=== PATIENT | female | born 1995 | race Caucasian/White ===

== ENCOUNTER 2016-05-26 01:21 | Observation (INO) ==
[2016-05-26 02:15] LABS: Bilirubin,Urine Negative (Negative); Blood,Urine Negative (Negative); Color,Urine Yellow (Yellow); Glucose,Urine (UA) Normal (Normal); Ketones,Urine 15 mg/dL (Negative); Leukocyte Esterase,Urine Small (Negative); Nitrite,Urine Negative (Negative); Protein,Urine Negative (Neg-Trace); Specific Gravity,Urine 1.022 (1.010-1.025); Urobilinogen,Urine Normal (Normal)
--- NOTE | 2016-05-26 02:17 | Discharge Summary ---
Date of Encounter: 05/26/16 Time of Encounter: 02:17 - Discharge Diagnosis (1) Vaginal discharge Priority: Primary Status: Acute Comments: Patient states she had intercourse within the past 48 hours. She c/o vaginal bleeding (small amount of old blood today) and soaking her pants this evening with an odorless clear fluid. She denies cramping, contractions, and vaginal pressure. She states baby is active, but not as active as normal today. Reactive fetus on NST. Category I tracing with 15x15 accels with baseline of 125 and no decels. Uterine irritability noted on TOCO, non-palpable. Spec exam: no significant finding, cervix visually closed Nitrazine negative. - Discharge Medications Home Medications: Cephalexin [Keflex] 500 mg PO BID 10 Days 02/14/16 [Rx] Ondansetron HCl [Zofran] 4 mg PO Q8HR PRN #12 tablet 02/14/16 [Rx] Allergies/Adverse Reactions: Allergies No Known Allergies Allergy (Verified 02/13/16 23:16) Date of admission: 05/26/16 01:21 Discharging clinician: Jesusita Mendoza - Patient Status Disposition: Home, Self-Care Condition: Good Functional capacity at discharge: independent ambulation Overall status at discharge: patient is back to baseline - Discharge Instructions Follow Up With: Keiko Dimas CNM [Non-Partnered Physician] - - Diet and Activity Activity: resume usual activities as tolerated Diet: regular diet 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 Reason for admission: other Time Attestation: Total time spent providing and/or coordinating discharge services: Time Spent: Less than 30 minutes Exam - Constitutional Vitals: Temp Pulse Resp BP 97.8 F 83 16 129/72 05/26/16 01:39 05/26/16 01:39 05/26/16 01:39 05/26/16 01:39 General appearance IM: cooperative, A&O X 3, pleasant, no acute distress, answers questions appropriately - Respiratory Respiratory exam: Present: CTAB - Cardiovascular Cardiovascular exam IM: Present: RRR, +S1, +S2 - GI/Abdominal GI/Abdominal exam IM: normal bowel sounds, soft - Additional comments: Gravid uterus nontender - Extremities Exam Extremities exam IM: Present: full ROM, normal capillary refill, normal inspection, radial pulses palpable and symetrical - Neurological Exam Neurological exam: oriented X3, reflexes normal, no focal deficits - VTE Reasons for not Prescribing Prophylaxis: Treatment not Indicated - Low risk for VTE
[2016-05-26 02:18] LABS: Clarity,Urine Hazy (Clear); Hyaline Casts,Urine None Seen per lpf (None-Few); RBC,Urine 0-3 per hpf (0-3); Squamous Epithelial Cell,Urine Many per lpf (None-Few)
[2016-05-26 02:38] LABS: Bacteria,Urine Few per hpf (None-Few)
[2016-05-28 10:27] VITALS: BP 129/72
== END 2016-05-26 02:24 | disposition home or self-care (01) ==
LOC: 1NENULAB
PROVIDERS: ADMIT Obstetrics & Gynecology; ATTEND Obstetrics & Gynecology

== ENCOUNTER 2016-06-24 08:15 | Inpatient (IN) ==
[2016-06-24 06:20] LABS: Bilirubin,Urine Negative (Negative); Blood,Urine Negative (Negative); Clarity,Urine Turbid (Clear); Color,Urine Yellow (Yellow); Glucose,Urine (UA) Normal (Normal); Ketones,Urine Negative (Negative); Leukocyte Esterase,Urine Negative (Negative); Nitrite,Urine Negative (Negative); Protein,Urine 100 mg/dL (Neg-Trace); Specific Gravity,Urine 1.019 (1.010-1.025); Urobilinogen,Urine Normal (Normal)
[2016-06-24 06:22] LABS: Squamous Epithelial Cell,Urine Many per lpf (None-Few)
[2016-06-24 06:29] LABS: Bacteria,Urine Many per hpf (None-Few); Mucus,Urine Many (Few)
[2016-06-24 06:30] LABS: RBC,Urine 0-3 per hpf (0-3); Transitional Epi Cells,Urine Few per hpf (None-Few)
[2016-06-24] MEDS ORDERED: Famotidine 20 MG/2 ML VIAL IVP PRN (08:23)
[2016-06-24] MEDS ORDERED: Naloxone 0.4 MG/ML INJ IVP PRN (08:23)
[2016-06-24] MEDS ORDERED: Ondansetron 4 MG/2 ML VIAL IVP PRN (08:23)
[2016-06-24] MEDS ORDERED: Metoclopramide 10 MG/2 ML VIAL IVP PRN (08:23)
[2016-06-24 08:43] LABS: Basophils # 0.1 K/mcL (0.0-0.2); Basophils % 0.4 %; Eosinophils # 0.1 K/mcL (0.0-0.6); Eosinophils % 0.7 %; Hematocrit 39.8 % (35.3-44.9); Hemoglobin 13.7 g/dL (11.5-15.4); Immature Granulocytes % 1.2 % (0-4); Lymphocytes # 4.4 K/mcL (0.6-4.6); Mean Corpuscular HGB Conc 34.4 g/dL (31.6-35.5); Mean Corpuscular Hemoglobin 30.8 pg (28.0-33.3); Mean Corpuscular Volume 89.4 fL (83.0-100.0); Mean Platelet Volume 11.9 fL (9.4-12.4); Monocytes # 1.1 K/mcL (0.0-1.3); Monocytes % 9.4 %; Neutrophils # 6.3 K/mcL (1.6-8.9); Platelet Count 194 K/mcL (140-400); Red Blood Count 4.45 M/mcL (3.82-4.97); Red Cell Distribution Width 12.2 % (11.5-14.5); Segmented Neutrophils % 52.3 %
[2016-06-24] MEDS ORDERED: Oxytocin 20 units/ LR 1000 mL 20 UNIT/1,000 ML BAG IVC ONE (08:57)
[2016-06-24] MEDS ORDERED: Oxytocin 20 units/ LR 1000 mL 20 UNIT/1,000 ML BAG IVC SCH (09:00)
[2016-06-24] MEDS: Ringers Solution, Lactated 1,000 ML IVC SCH ×2 (09:20→17:57)
--- NOTE | 2016-06-24 09:37 | OB/GYN History & Physical ---
Date of Encounter: 06/24/16 Time of Encounter: 09:34 Assessment and Plan (1) PROM (premature rupture of membranes) Current visit: Yes Status: Acute SROM for clear fluid at 0500 this am. GBS negative. Admit for augmentation of labor. Plan for pitocin augmentation. Frequent repositioning and coaching for pain management as pt states she does not want an epidural. Anticipate . Qualifiers: PROM onset of labor timing: unspecified duration between rupture of membranes and onset of labor PROM gestational age: full term Qualified Code( s): O42.92 - Full-term premature rupture of membranes, unspecified as to length of time between rupture and onset of labor (2) 37 weeks gestation of Current visit: Yes Status: Acute History of Present Illness Chief complaint: SROM HPI: Ms. Tee is a 21 year old female presenting at 37w6d with c/o leaking fluid. Pt states she woke with wet clothing at 0500 this am and has continued to leak since. She denies contractions or VB. Good FM. No other complaints. This has been uncomplicated and pt transferred to [facility] from [facility] at 28 weeks gestation. Blood type O positive. Rubella immune. Serologies and GBS negative. Past Med Surg Social Fam HX - Past Medical History Medical history: no medical history Psychiatric history: no psych history - Social History Smoking Status: Never smoker Smokeless Tobacco Status: No Alcohol use: none Drug use: none - Family History Mother Living Status: Still Living Hx Family Cardiac Disorders: No Hx Family Respiratory Disorders: No Hx Family Cancer: No Hx Family GI Disorders: No Hx Family Endocrine Disorder: No Hx Family Neuromuscular Disorders: No Hx Family Neurologic Disorders: No Hx Family HEENT Disorders: No Hx Family Autoimmune Disorders: No Obstetrical History - Pregnancies : 2 Para: 0 Ab's: 1 Medications and Allergies Tablet 1 tab PO DAILY 05/26/16 [History] Acetaminophen [Tylenol] 1 tab PO PRN PRN 06/24/16 [History] Allergies No Known Allergies Allergy (Verified 06/24/16 05:56) Review of System OB All systems PM: reviewed and no additional remarkable complaints except as stated Exam - Constitutional Constitutional: well developed, well nourished, no acute distress - HEENT HEENT: Mucus Membranes Moist - Lungs Respiratory exam: CTAB - Cardiovascular Cardiovascular exam: RRR, +S1, +S2 - Abdomen Abdomen: Present: gravid, non tender - Extremities Extremities exam: normal inspection - Vulva Vulva: bilateral: normal - Vagina Vagina: Present: normal moisture - Cervix Dilation: 1 Effacement: 80 - Anus/Rectum Anus/Rectum: Present: normal perianal skin Results Result Diagrams: 06/24/16 08:30 Abnormal lab results WBC 12.1 K/mcL (4.3-11.1) H 06/24/16 08:30 Immature Plt Fraction 14.0 % (1.1-6.1) H 06/24/16 08:30 Urine Clarity Turbid (Clear) A 06/24/16 06:08 Urine Protein 100 mg/dL (Neg-Trace) H 06/24/16 06:08 Urine Microscopic WBC 5-15 per hpf (0-3) H 06/24/16 06:08 Ur Squamous Epith Cells Many per lpf (None-Few) H 06/24/16 06:08 Urine Bacteria Many per hpf (None-Few) H 06/24/16 06:08 Urine Mucus Many (Few) H 06/24/16 06:08 Ur Culture Indicated? YES (NO) A 06/24/16 06:08 All other labs normal. - VTE Reasons for not Prescribing Prophylaxis: Treatment not Indicated - Low risk for VTE
--- NOTE | 2016-06-24 11:00 | Anesthesia Evaluation PreOp ---
Date of Encounter: 06/24/16 Time of Encounter: 10:58 - Past History Planned Operation: isabel Cardiac History: Denies any Significant Hx Pulmonary History: Denies Any Significant HX EMPLOYMENT CASE MANAGER History: Denies Any Significant HX Other Medical History: GERD Anesthesia History: No Prior Anesthetic Complications, Past Anesthesia (Closed reduction radius fx 2006), Problems (none) : Yes Test: Positive Alcohol Use: none Drug use: none Medications and Allergies Tablet 1 tab PO DAILY 05/26/16 [History] Acetaminophen [Tylenol] 1 tab PO PRN PRN 06/24/16 [History] Allergies No Known Allergies Allergy (Verified 06/24/16 05:56) - Meds/Allergy Pre-op Review Medications Reviewed: Yes Allergies Reviewed: Yes Beta Blockers on Current Med List: No Anesthesia Results - Labs 06/24/16 08:30 Anesthesia Exam Height: 5'3" Weight: 76 NPO (# of Hours): 6 Pain Scale: 2 Pain Scale Used: Numeric (1 - 10) - HEENT Pupil (Motor): Pupils equal Mallampati: II Teeth: Normal Oral Opening: Greater than 3 - EMPLOYMENT CASE MANAGER LOC: Oriented EMPLOYMENT CASE MANAGER Motor: Normal RUE, Normal LUE, Normal RLE, Normal LLE, Normal Face EMPLOYMENT CASE MANAGER Sensory: Normal: RUE, LUE, RLE, LLE, Face - Cardiac Rhythm: Regular Murmur: None - Pulmonary Breath Sounds: bilateral Clear Respiratory Effort: Symmetrical Anesthesia Assess/Plan ASA Score: 2 Modified Dami Scale for Level of Consciousness: Cooperative, oriented, and tranquil Anesthetic Plan: Regional Autologous Blood: No Monitoring Plan: Standard Monitors Recovery Plan: Other (risks discussed, questions answered, consented)
--- NOTE | 2016-06-24 12:00 | OB Labor Progress Note ---
Date of Encounter: 06/24/16 Time of Encounter: 11:58 Labor Progress Note - Subjective Subjective: Pt reports some lower back pain with contractions. - Cervix Cervix: 3/80/-1 - Heart Tones Heart Tones: Category I - [place]: 2-3 minutes - Interventions Interventions: AROM of forebag for small amount additional clear fluid. IUPC and FSE placed. - Plan Plan: Continue monitoring. Allow frequent position changes. Anticipate .
[2016-06-24] MEDS ORDERED: *HR* Nalbuphine 20 MG/ML AMPUL IVP PRN ×2 (13:48→20:25)
[2016-06-24] MEDS ORDERED: *HR* Nalbuphine 20 MG/ML AMPUL ONE ×2 (13:49→20:32)
[2016-06-24] MEDS ORDERED: Lidocaine 1% 20 ML MDV ONE ×2 (15:15→21:57)
[2016-06-24] MEDS ORDERED: 0.9 % Sodium Chloride 1,000 ML ONE (15:44)
--- NOTE | 2016-06-24 15:51 | OB Labor Progress Note ---
Date of Encounter: 06/24/16 Time of Encounter: 15:49 Labor Progress Note - Subjective Subjective: Pt breathing through contractions. Nubain has helped her discomfort somewhat. She is still declining epidural at this time. - Cervix Cervix: 4-5/90/-1 - Heart Tones Heart Tones: Category II. Moderate variability. Variable decelerations present with contractions. Variables have not improved with position changes. Will start amnioinfusion. - [place]: 2-4 minutes - Interventions Interventions: Amnioinfusion ordered. - Plan Plan: Continue to monitor. Dr. Padilla notified of category II tracing and states he will come in.
[2016-06-24] MEDS ORDERED: *HR* Ropivacaine/PF 0.2% 10 ML AMPUL EP ONE (16:10)
[2016-06-24] MEDS ORDERED: *HR* FentaNYL (PF) 100 MCG/2 ML VIAL EP ONE (16:10)
[2016-06-24] MEDS ORDERED: *HR* Ropivacaine/PF 0.2% 10 ML AMPUL ONE ×3 (16:12→20:21)
[2016-06-24] MEDS ORDERED: *HR* FentaNYL (PF) 100 MCG/2 ML VIAL ONE ×3 (16:12→20:21)
[2016-06-24] MEDS ORDERED: Epidural Premix (fent/bupiv) 110 ML EP ONE ×2 (16:13→22:49)
[2016-06-24] MEDS ORDERED: Epidural Premix (fent/bupiv) 110 ML EP SCH (16:15)
--- NOTE | 2016-06-24 16:39 | Anesthesia Procedures ---
Date of Encounter: 06/24/16 Time of Encounter: 16:37 Procedures: Anesthesia - Epidural/Spinal Patient examined: Yes OB Eval: Gestational age: 37.6 OB Eval: : 2 OB Eval: Hx Para: 0 OB Eval: Dilated at (cm): 5 OB Eval: Contractions: Non-stressed pattern Consent Obtained: Yes Supplemental Oxygen: None/Room Air Site Prep: Aseptic Technique, Sterile prep and drape, 0.5% Chlorhexidine/Alcohol Patient position: upright Local Anesthetic: Lidocaine 1% Amount of Local Anesthetic used: 3 Touhy Needle Gauge: 18 Catheter Depth at Skin (cm): 9 Test Dose (1.5% Lido + Epi): Volume given (mls): 3 Test Dose Result: Negative Loading Dose: Fentanyl (mcg): 100 Loading Dose: Other: ropivicaine 0.2% 10cc Loading Dose Administered: Thru Touhy Needle Infusion Med: 0.125% Bupivacaine w/ 2 mcg/ml Fentanyl Infusion Rate (mls/hr): 14 (pcea 5cc q30") Catheter Secured in Place: Tegaderm Interspace Used: L2-L3 Loss of Resistance (CISCO): Yes Blood: No CSF: No Paresthesia: No Procedure: aseptic throughout, tolerated well, VSS, effective Vitals + FHT's: 121/68 84 16 98% fht 110
[2016-06-24] MEDS ORDERED: Bupivacaine-MPF 0.25% 10 ML VIAL ONE (18:11)
--- NOTE | 2016-06-24 18:19 | Anesthesia Progress Note ---
Date of Encounter: 06/24/16 Time of Encounter: 18:17 Anesthesia Note - Note Note: 06/24/16 18:17 bolus epidural w 5 cc marcaine 0.25 and fentanyl 100mcg for break thru
--- NOTE | 2016-06-24 19:30 | Anesthesia Progress Note ---
Date of Encounter: 06/24/16 Time of Encounter: 19:28 Anesthesia Note - Note Note: 06/24/16 19:28 10cc 0.2% Ropivicaine via epidural for pain 8/10 on left side. R/B of redoing the epidural if bolus doesn't work was discussed in detail.
--- NOTE | 2016-06-24 20:58 | Anesthesia Procedures ---
Date of Encounter: 06/24/16 Time of Encounter: 20:54 Procedures: Anesthesia - Epidural/Spinal Patient ID/Chart reviewed: Yes Patient examined: Yes OB Eval: Contractions: Non-stressed pattern Consent Obtained: Yes Site Prep: Aseptic Technique, 0.5% Chlorhexidine/Alcohol Patient position: upright Local Anesthetic: Lidocaine 1% Amount of Local Anesthetic used: 3 Touhy Needle Gauge: 18 Touhy Needle Depth (cm): 9 Catheter Depth at Skin (cm): 15 Test Dose (1.5% Lido + Epi): Volume given (mls): 3 Test Dose Result: Negative Loading Dose: 0.25% Marcaine (mls): 5 Loading Dose: Fentanyl (mcg): 100 Loading Dose: Other: 2ML NSS Loading Dose Administered: Thru Touhy Needle Infusion Med: 0.125% Bupivacaine w/ 2 mcg/ml Fentanyl Infusion Rate (mls/hr): [address]: Tegaderm Interspace Used: L3-L4 Loss of Resistance (CISCO): Yes Blood: No CSF: No Paresthesia: No Procedure: Called to bedside for pain 10/10 since pitocin was restarted. Current epidural cathetar removed and new epidural inserted one interspace below previous epidural, likely L4-5. Good CISCO, no change in FHR.
--- NOTE | 2016-06-25 00:26 | OB/GYN Procedure Note ---
Delivery - Delivery Date: 06/25/16 Provider: Peace Buckner Intrapartum events: none Delivery induction: none Delivery augmentation: pitocin Delivery monitor: internal FHT, internal uterine Anesthesia: epidural Estimated Blood Loss: 350 - (s) Infant A Delivery Date: 06/24/16 Delivery Time: 23:39 Presentation: vertex Position: OA Route of delivery: Gender: Male Viability: Viable Pounds: 6 Ounces: 11 Weight Gram: 3040 kg at 1 minute: 8 at 5 mins: 9 Shoulder Dystocia: not encountered Specimens collected: cord blood Placenta: spontaneous (marginal cord insertion, accessory lobe) Cord: 3 umbilical vessels - Repair Episiotomy: none Laceration Description: Periurethral, Vaginal - Complications Delivery complications: uterine atony Delivery comments: Pt pushed effectively to over intact perineum for viable male infant weighing 6lbs. 11oz. with apgars 8 and 9. After a 2 minute delay the cord was clamped and cut and the placenta delivered spontaneous and intact. A left periurethral laceration and a small right vaginal laceration were repaired with 3-0 Vicryl. Uterine atony was noted following repair and was controlled with bimanual compression and methergine. EBL 350ml. Mother and baby stable in kangaroo care following delivery. - Disposition Mom disposition: stable in LDR [place] disposition: stable in LDR
[2016-06-25] MEDS ORDERED: Oxytocin 20 units/ LR 1000 mL 20 UNIT/1,000 ML BAG IVC SCH (02:58)
[2016-06-25] MEDS ORDERED: *HR* HYDROcodone/Acet 5/325 mg TABLET PO PRN (02:58)
[2016-06-25] MEDS ORDERED: Measles/Mumps/Rubella Vacc 0.5 ML VIAL SQ PRN (02:58)
[2016-06-25] MEDS ORDERED: Acetaminophen 325 MG TABLET PO PRN (02:58)
[2016-06-25] MEDS ORDERED: Ibuprofen 600 MG TABLET PO PRN (02:58)
[2016-06-25] MEDS ORDERED: Benzocaine/Menthol 56 GM AEROSOL SPRAY TP PRN (02:58)
[2016-06-25] MEDS ORDERED: Lanolin 28 GM TUBE TP PRN (02:58)
[2016-06-25 05:10] LABS: Basophils % 0.1 %; Hematocrit 37.4 % (35.3-44.9); Hemoglobin 12.8 g/dL (11.5-15.4); Immature Granulocytes % 0.8 % (0-4); Lymphocytes # 2.3 K/mcL (0.6-4.6); Lymphocytes % 10.1 %; Mean Corpuscular HGB Conc 34.2 g/dL (31.6-35.5); Mean Corpuscular Hemoglobin 31.5 pg (28.0-33.3); Mean Corpuscular Volume 92.1 fL (83.0-100.0); Monocytes # 1.8 K/mcL (0.0-1.3); Platelet Count 151 K/mcL (140-400); Red Blood Count 4.06 M/mcL (3.82-4.97); Red Cell Distribution Width 12.4 % (11.5-14.5)
[2016-06-25 05:21] LABS: Neutrophils # 18.1 K/mcL (1.6-8.9)
[2016-06-25] MEDS: Prenatal Vit/FA 1 EACH TABLET PO SCH (08:11)
--- NOTE | 2016-06-25 08:39 | OB/GYN Progress Note ---
Date of Encounter: 06/25/16 Time of Encounter: 08:35 - Assessment and Plan (1) Vaginal delivery Current Visit: Yes Status: Acute Continue with routine management Patient is Anticipate discharge home tomorrow Subjective - Subjective Principal diagnosis: 37 week vaginal delivery Interval history: Post vaginal delivery day 1 Patient is doing well States pain is well controlled is going well Lochia is light States positive flatus and urinating normally Patient denies headache, vision changes, epigastric pain. Anticipate discharge home tomorrow. Patient reports: appetite normal, voiding normally, pain well controlled, ambulating normally [place]: doing well Objective - Latest Vital Signs Latest vital signs: Vital Signs Temp Pulse Resp BP Pulse Ox 06/25/16 08:18 16 06/25/16 08:01 99.4 F 71 16 107/64 06/25/16 04:30 98.4 F 92 16 127/85 98 06/25/16 03:30 98.8 F 86 16 128/79 99 06/25/16 02:30 98.3 F 71 16 119/71 99 Intake and Output 06/24/16 06/25/16 06/25/16 23:59 07:59 15:59 Intake Total 1000 / 1000 960 / 960 Output Total 1050 / 1050 1000 / 1000 1000 / 1000 Balance -50 / -50 -1000 / -1000 -40 / -40 Intake: IV Fluids 1000 / 1000 Lactated Ringers 1,000 ML 1000 / 1000 @ 125 mls/hr IVC .Q8H [facility] Rx#:[id number] Oral 960 / 960 Output: Urine 500 / 500 1000 / 1000 1000 / 1000 Catheter 550 / 550 Other: Weight 71.923 kg Patient Weight 06/25/16 23:59 Weight 71.923 kg - Exam Lungs: bilateral: normal Chest: Normal S1, Normal S2 Extremities: Present: normal Abdomen: Present: normal appearance, soft. Absent: gravid Uterus: Present: normal, firm Uterus Position: 1 Finger Below Umbilicus, Midline - Labs Labs: Laboratory Results - last 24 hr 06/24/16 06/25/16 08:30 03:59 WBC 12.1 H 22.3 H D RBC 4.45 4.06 Hgb 13.7 12.8 Hct 39.8 37.4 MCV 89.4 92.1 MCH 30.8 31.5 MCHC 34.4 34.2 RDW 12.2 12.4 Plt Count 194 151 MPV 11.9 12.0 Immature Gran % 1.2 0.8 Seg Neutrophils % 52.3 81.0 Lymphocytes % 36.0 10.1 Monocytes % 9.4 8.0 Eosinophils % 0.7 0.0 Basophils % 0.4 0.1 Neutrophils # 6.3 18.1 H Lymphocytes # 4.4 2.3 Monocytes # 1.1 1.8 H Eosinophils # 0.1 0.0 Basophils # 0.1 0.0 Immature Plt Fraction 14.0 H
--- NOTE | 2016-06-26 08:08 | Discharge Summary ---
Date of Encounter: 06/26/16 Time of Encounter: 08:05 - Discharge Diagnosis (1) Vaginal delivery Priority: Primary Status: Acute Comments: Patient states feeling well, but stressed and tearful about breastfeeeding, pain well managed on po medication. - Discharge Medications Prescriptions: Ibuprofen [Motrin] 600 mg PO Q6HR PRN #60 tablet PRN Reason: Cramping Docusate [Colace] 100 mg PO BID #60 capsule Home Medications: Tablet 1 tab PO DAILY 05/26/16 [History] Acetaminophen [Tylenol] 1 tab PO PRN PRN 06/24/16 [History] Acetaminophen [Tylenol] 650 mg PO Q6HR PRN #0 tablet 06/26/16 [Rx] Benzocaine/Menthol [place] [Dermoplast [place]] 1 appl TP QID PRN #0 aerosol [Rx] Docusate [Colace] 100 mg PO BID #60 capsule 06/26/16 [Rx] Ibuprofen [Motrin] 600 mg PO Q6HR PRN #60 tablet 06/26/16 [Rx] Lanolin 1 appl TP Q4HR PRN #0 tube 06/26/16 [Rx] Allergies/Adverse Reactions: Allergies No Known Allergies Allergy (Verified 06/24/16 05:56) Data Procedures and tests throughout hospitalization: Laboratory Tests 06/24/16 06/24/16 06/25/16 06:08 08:30 03:59 WBC 12.1 H 22.3 H D RBC 4.45 4.06 Hgb 13.7 12.8 Hct 39.8 37.4 MCV 89.4 92.1 MCH 30.8 31.5 MCHC 34.4 34.2 RDW 12.2 12.4 Plt Count 194 151 MPV 11.9 12.0 Immature Gran % 1.2 0.8 Seg Neutrophils % 52.3 81.0 Lymphocytes % 36.0 10.1 Monocytes % 9.4 8.0 Eosinophils % 0.7 0.0 Basophils % 0.4 0.1 Neutrophils # 6.3 18.1 H Lymphocytes # 4.4 2.3 Monocytes # 1.1 1.8 H Eosinophils # 0.1 0.0 Basophils # 0.1 0.0 Immature Plt Fraction 14.0 H Urine Color Yellow Urine Clarity Turbid A Urine pH 7.0 Ur Specific [place] 1.019 Urine Protein 100 H Urine Glucose (UA) Normal Urine Ketones Negative Urine Blood Negative Urine Nitrite Negative Urine Bilirubin Negative Urine Urobilinogen Normal Ur Leukocyte Esterase Negative Urine Microscopic RBC 0-3 Urine Microscopic WBC 5-15 H Ur Squamous Epith Cells Many H Ur Transition Epith Cell Few Urine Bacteria Many H Hyaline Casts Test Not Performed Urine Mucus Many H Ur Culture Indicated? YES A Date of admission: 06/24/16 08:16 Primary care physician: Provider Unassigned Consults: 06/25/16 02:58 Consult to Product Inspection Supervisor [CONS] Routine Comment: Vaginal delivery, consult needed Consult to Floral Manager [CONS] Routine Reason for SW Consult: severe anxiety, social issues Discharging clinician: Jenifer Loja Anticipated date of discharge: 06/26/16 - Patient Status Disposition: Home, Self-Care Condition: Good Functional capacity at discharge: independent ambulation Overall status at discharge: patient is back to baseline - Discharge Instructions Follow Up With: Unassigned,Provider [Primary Care Provider] - Peace Buckner, OLAYINKAM [Non-Partnered Physician] - - Diet and Activity Activity: resume usual activities as tolerated Diet: advance to your usual diet, regular diet Hospital Course Reason for admission: rupture of membranes, IUP at term Delivery: Episiotomy: none Laceration: other (periurethral ) Other procedures: none complications: none Discharge diagnosis: IUP at term delivered baby: male Hospital course: Delivery - Delivery Date: 06/25/16 Provider: Peace Buckner Intrapartum events: none Delivery induction: none Delivery augmentation: pitocin Delivery monitor: internal FHT, internal uterine Anesthesia: epidural Estimated Blood Loss: 350 - Infant (s) A Infant Delivery Date: 06/24/16 Infant Delivery Time: 23:39 Presentation: vertex Position: OA Route of delivery: Gender: Male Viability: Viable Pounds: 6 Ounces: 11 Weight Gram: 3040 kg at 1 minute: 8 at 5 mins: 9 Shoulder Dystocia: not encountered Specimens collected: cord blood Placenta: spontaneous (marginal cord insertion, accessory lobe) Cord: 3 umbilical vessels - Repair Episiotomy: none Laceration Description: Periurethral, Vaginal - Complications Delivery complications: uterine atony Delivery comments: Pt pushed effectively to over intact perineum for viable male infant weighing 6lbs. 11oz. with apgars 8 and 9. After a 2 minute delay the cord was clamped and cut and the placenta delivered spontaneous and intact. A left periurethral laceration and a small right vaginal laceration were repaired with 3-0 Vicryl. Uterine atony was noted following repair and was controlled with bimanual compression and methergine. EBL 350ml. Mother and baby stable in kangaroo care following delivery. - Disposition Mom disposition: stable in and appropriate for discharge Time Attestation: Total time spent providing and/or coordinating discharge services: Time Spent: Less than 30 minutes Exam - Constitutional Vitals: Temp Pulse Resp BP Pulse Ox 97.9 F 84 16 98/61 96 06/25/16 21:40 06/25/16 21:40 06/25/16 21:40 06/25/16 21:40 06/25/16 21:40 General appearance IM: A&O X 3, no acute distress - Respiratory Respiratory exam: Present: CTAB - Cardiovascular Cardiovascular exam IM: Present: RRR, +S1, +S2 - GI/Abdominal GI/Abdominal exam IM: normal bowel sounds, soft - Uterine Tone: Firm Uterus Position: At Umbilicus, Midline - Extremities Exam Extremities exam IM: Present: normal capillary refill, normal inspection - Neurological Exam Neurological exam: oriented X3 - Psychiatric Additional comments: Pt tearful about being unable to . Able to verbalize concerns and is redirected appropriately. PPD discussed.
[2016-06-26 08:40] VITALS: BP 106/69
[2016-06-26] MEDS: Prenatal Vit/FA 1 EACH TABLET PO SCH (10:27)
== END 2016-06-26 11:00 | disposition home or self-care (01) | DRG 775 ==
LOC: 1NENULAB → 1NENUOBS 06-25 02:36
PROVIDERS: ADMIT Obstetrics & Gynecology; ATTEND Obstetrics & Gynecology